=== PATIENT | male | born 1980 | race African-American/Black ===

== ENCOUNTER 2019-07-05 05:13 | Emergency (ER) | payer SELFPAY ==
[~2019-07-05] VITALS: Ht 182.9 cm; Wt 77.1 kg
[2019-07-05 05:13] VITALS: BP 141/81
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
--- NOTE | 2019-07-05 05:13 | NUR ---
CARISA BUTT, PREBOOK. TAKEN TO CHAIR B
--- NOTE | 2019-07-05 05:33 | NUR ---
Dr. Keen examining patient.
--- NOTE | 2019-07-05 05:55 | NUR ---
PT REFUSED TDAP. DR BANKS INFORMED. CONTINUE TO MONITOR.
[2019-07-05 06:22] VITALS: BP 141/81
--- NOTE | 2019-07-05 06:22 | NUR ---
PATIENT EXAMINED BY DR. BANKS. PATIENT MEDICALLY CLEARED AND RELEASED IN CUSTODY IN STABLE CONDITION. ORIGINAL PRE-BOOK FORM GIVEN TO [place] [employer] OFFICER.
== END 2019-07-05 06:22 ==
LOC: MED 05:13
DX: R03.0 Elevated blood-pressure reading, without diagnosis of hypertension (principal); Z02.89 Encounter for other administrative examinations
CPT/HCPCS: 99283